=== PATIENT | male | born 1960 | race Caucasian/White ===

== ENCOUNTER 2022-09-02 11:28 | Outpatient (REF) | payer OTHER, SELFPAY ==
[2022-09-02 13:02] LABS: MANUAL DIFF FLAG NO
[2022-09-02 13:14] LABS: Basophils Percent Auto 0.5 % (0-2); Eosinophils Absolute Auto 0.2 X10*3/uL (0.0-0.4); Eosinophils Percent Auto 3.6 % (0-4); Hematocrit 44.2 % (42.0-52.0); Imm Gran Abs Auto 0.03 X10*3/uL (0.00-0.03); Imm Gran Pct Auto 0.5 % (0.0-0.4); Lymphocytes Absolute Auto 2.2 X10*3/uL (1.2-4.9); Lymphocytes Percent Auto 35.6 % (20-40); Mean Corpuscular HGB Conc 33.9 g/dl (31.0-36.0); Mean Corpuscular Hemoglobin 33.1 pg (27.0-33.0); Mean Corpuscular Volume 97.6 fL (80.0-98.0); Mean Platelet Volume 9.5 fL (9.4-12.4); Monocytes Absolute Auto 0.8 X10*3/uL (0.1-1.2); Monocytes Percent Auto 13.7 % (2-11); Neutrophils Absolute Auto 2.8 x10*3/uL (2.0-8.3); Neutrophils Percent Auto 46.1 % (45-73); Platelet Count 279 X10*3/uL (160-400); Red Blood Count 4.53 X10*6/uL (4.60-5.80); Red Cell Distribution Width 13.5 % (11.0-16.0); White Blood Count 6.1 X10*3/uL (4.8-10.8)
[2022-09-02 13:43] LABS: Alanine Aminotransferase 20 U/L (0-40); Alkaline Phosphatase 71 U/L (39-117); Anion Gap 12 (12-20); Aspartate Amino Transferase 14 U/L (5-37); Bilirubin Total 0.4 mg/dL (0.0-1.0); Blood Urea Nitrogen 21 mg/dL (9-16); C Reactive Protein < 0.10 mg/dL (< or = 0.50); Calcium 9.8 mg/dL (8.4-10.2); Carbon Dioxide 28 mmol/L (22-29); Chloride 106 mmol/L (96-108); Estimated Glomerular Filt Rate > 60; Glucose Random 90 mg/dL (60-115); Potassium 4.9 mmol/L (3.3-5.1); Sodium 141 mmol/L (135-145); Total Protein 6.7 g/dL (6.5-8.0)
[2022-09-02 13:52] LABS: Erythrocyte Sedimentation Rate 5 MM/HR (0-15)
[2022-09-04 06:34] LABS: HBc Num1 0.03 S/CO (0.00-0.79); HBsAGNum1 0.28 S/CO (0.00-0.99); Hepatitis A Antibody IgM 0.13 Index (0-0.79); Hepatitis B Core Antibody Nonreactive (Nonreactive); Hepatitis B Surface Antigen Negative (Negative); ~HepC Num1 0.05 S/CO (0.00-0.79); ~Hepatitis A Antibody IgM Nonreactive (Nonreactive); ~Hepatitis B Surface Antibody NONREACTIVE (Nonreactive); ~Hepatitis C Antibody Nonreactive (Nonreactive)
[2022-09-04 14:17] LABS: IgA 442 mg/dL (70-320); IgG 873 mg/dL (600-1540); IgM 143 mg/dL (50-300)
[2022-09-04 22:38] LABS: Prot Elec - Albumin 4.3 g/dL (3.8-4.8); Prot Elec - Alpha1 0.2 g/dL (0.2-0.3); Prot Elec - Alpha2 0.7 g/dL (0.5-0.9); Prot Elec - Beta 1 0.5 g/dL (0.4-0.6); Prot Elec - Beta 2 0.5 g/dL (0.2-0.5); Prot Elec - Gamma 0.8 g/dL (0.8-1.7); Prot Elec - Total Protein 6.9 g/dL (6.1-8.1)
[2022-09-05 03:39] LABS: TS Negative Control Passed; TS Panel A 0; TS Panel B 0; TS Positive Control Passed; TSpotTB Negative (Negative)
== END 2022-09-02 11:29 | disposition home or self-care (01) ==
LOC: HO.LAB 11:28
PROVIDERS: PCP Nurse Practitioner Family; Visit Provider Student in an Organized Health Care Education/Training Program
DX: Z11.7 Encounter for testing for latent tuberculosis infection (principal); Z11.59 Encounter for screening for other viral diseases; M06.9 Rheumatoid arthritis, unspecified; L40.50 Arthropathic psoriasis, unspecified; N52.9 Male erectile dysfunction, unspecified
CPT/HCPCS: 36415; 80053; 82784; 84165; 85025; 85652; 86140; 86334; 86481; 86704; 86706; 86709; 86803; 87340; 99202

== ENCOUNTER → 2022-11-25 11:05 | Outpatient (BNVA) | payer OTHER, SELFPAY | PROVIDERS: PCP Nurse Practitioner Family; Visit Provider Student in an Organized Health Care Education/Training Program | DX: L40.50 Arthropathic psoriasis, unspecified (principal); N52.9 Male erectile dysfunction, unspecified; Z79.631 Long term (current) use of antimetabolite agent | CPT/HCPCS: 99212 ==

== ENCOUNTER 2023-02-18 15:22 | Outpatient (REF) | payer OTHER, SELFPAY ==
[2023-02-18 15:38] LABS: MANUAL DIFF FLAG NO
[2023-02-18 18:22] LABS: Basophils Percent Auto 0.5 % (0-2); Eosinophils Absolute Auto 0.2 X10*3/uL (0.0-0.4); Eosinophils Percent Auto 2.5 % (0-4); Hematocrit 41.4 % (42.0-52.0); Imm Gran Abs Auto 0.02 X10*3/uL (0.00-0.03); Imm Gran Pct Auto 0.3 % (0.0-0.4); Lymphocytes Absolute Auto 2.1 X10*3/uL (1.2-4.9); Lymphocytes Percent Auto 32.2 % (20-40); Mean Corpuscular HGB Conc 33.8 g/dl (31.0-36.0); Mean Corpuscular Volume 97.6 fL (80.0-98.0); Mean Platelet Volume 10.1 fL (9.4-12.4); Monocytes Absolute Auto 0.6 X10*3/uL (0.1-1.2); Monocytes Percent Auto 9.9 % (2-11); Neutrophils Absolute Auto 3.5 x10*3/uL (2.0-8.3); Neutrophils Percent Auto 54.6 % (45-73); Platelet Count 291 X10*3/uL (160-400); Red Blood Count 4.24 X10*6/uL (4.60-5.80); Red Cell Distribution Width 13.3 % (11.0-16.0); White Blood Count 6.5 X10*3/uL (4.8-10.8)
[2023-02-18 18:53] LABS: Alanine Aminotransferase 16 U/L (0-40); Alkaline Phosphatase 63 U/L (39-117); Anion Gap 9 (12-20); Aspartate Amino Transferase 16 U/L (5-37); Bilirubin Total 0.4 mg/dL (0.0-1.0); Blood Urea Nitrogen 19 mg/dL (9-16); C Reactive Protein < 0.04 mg/dL (< or = 0.50); Calcium 9.5 mg/dL (8.4-10.2); Carbon Dioxide 27 mmol/L (22-29); Chloride 107 mmol/L (96-108); Estimated Glomerular Filt Rate > 60; Glucose Random 80 mg/dL (60-115); Potassium 4.4 mmol/L (3.3-5.1); Sodium 139 mmol/L (135-145); Total Protein 6.8 g/dL (6.5-8.0)
[2023-02-18 18:55] LABS: Erythrocyte Sedimentation Rate 7 MM/HR (0-15)
== END 2023-02-18 15:23 | disposition home or self-care (01) ==
LOC: HO.LAB 15:22
PROVIDERS: Visit Provider Student in an Organized Health Care Education/Training Program
DX: L40.50 Arthropathic psoriasis, unspecified (principal)
CPT/HCPCS: 36415; 80053; 85025; 85652; 86140

== ENCOUNTER 2023-05-19 08:43 | Outpatient (AMB) | payer OTHER, SELFPAY ==
[2023-05-19 08:58] VITALS: BP 106/60; PULSE 82; TEMP 36.4; O2SAT 96; BMI 23.2
--- NOTE | 2023-05-19 08:58 | MHC.OFFVIS ---
Intake Vital Signs 05/19/23 08:58 Height 5 ft 5.5 in Weight 141 lb 12.116 oz BMI 23.2 BP 106/60 Blood Pressure Location Rt brachial Position Sitting Pulse 82 Pulse Source Pulse Oximeter Temp 97.5 F Temp Source Skin Pulse Oximetry (%) 96 Intake Visit Reasons: PsA Intake Note: Pt seen today for follow up and discuss medication. States his arthritis is under control Show Host Or Hostess Required: No Accompanied by: Self / Same As Patient Allergies methotrexate Adverse Reaction (Intermediate, Unverified 05/19/23 09:25) erectile dysfunction Medication List - Last Reconciled 05/19/23 by Magan Mackey MD etodolac 400 mg PO .qd metronidazole 0.75% 1 appl topical DAILY PRN omeprazole 20 mg PO .qod HPI HPI Comments History of Present Illness Details 63-year-old male with psoriatic arthritis returns for follow-up. After last visit patient stop the etodolac and felt no improvement with regards to his erectile dysfunction. 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 He stopped methotrexate about a month ago without any change in his arthritic symptoms. He feels however that his erectile dysfunction improved by about 50%. Gets very rare psoriasis rashes Initial history: This is a 62-year-old male with past medical history of psoriasis diagnosed more than 20 years ago, psoriatic arthritis-seronegative arthritis who presents as a new patient. Patient used to see Dr. Lopez followed by Dr. Dudley. States that in 2019 he started having significant joint pain swelling and stiffness. He was evaluated by Dr. Lopez he was started on etodolac then hydroxychloroquine was added. States that the etodolac was helping. Methotrexate was added around 2019. Patient used to take methotrexate and hydroxychloroquine until about 6 months ago. He ran out of the hydroxychloroquine and did not notice much difference in his symptoms. Patient currently feels well overall. Continues to have generalized morning stiffness affecting his back, hands, feet, heels lasting 5-10 minutes improved with walking & the taking the etodolac which he currently uses about once daily. He does not have any back pain that wakes him up from sleep. His granddaughter has Crohn's disease. No history suggestive of uveitis or IBD. Mentions starting a new relationship. He states he is having some difficulty obtaining erections. Over the last few years patient was not interested in any sexual relationships. [facility] Medical History (Updated 05/19/23 @ 09:29 by Magan Mackey MD) Psoriasis Blepharitis Genital herpes simplex Surgical History History of repair of ACL Family History Mother Hypertension Psoriasis Father Arthritis Daughter No problems noted. 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 Review of Systems ENT Details: reduced hearing Reports erectile dysfunction Musc Reports arthralgias Physical Exam Vital Signs: Last Vital Signs Temp 97.5 F 05/19/23 08:58 Pulse 82 05/19/23 08:58 BP 106/60 05/19/23 08:58 Pulse Ox 96 05/19/23 08:58 BMI result Body Mass Index 23.2 Const General: cooperative, healthy appearing, comfortable and no acute distress Nutritional Appearance: average body habitus Orientation/consciousness: patient oriented x3 Limitations: no limitations HEENT Head: Yes normocephalic and Yes atraumatic Resp Effort & Inspection: normal respiratory effort and able to speak in complete sentences Auscultation: clear to auscultation bilaterally Cardio Rate: regular rate Rhythm: regular rhythm Heart sounds: S1 normal heart sound present and S2 normal heart sound present Skin General skin exam: no rashes or lesions noted Neuro General: patient oriented x3 Extrem Other: Mild osteoarthritic changes of both hands with no synovitis Mild right 1st CMC joint tenderness Hugh test 10-14 cm Normal lateral flexion test Negative Veto's test bilaterally Assessment & Plan Assessment & Plan (1) Psoriatic arthritis: Comment: Diagnosed 2018. psA vs seroneg RA Etodolac started 2018, reduced to 1 tab daily 2019 HCQ started 2018, DC'd 2020 as patient could not get any refills Methotrexate started in 2019- patient self DC 04/2023 due to erectile dysfunction which improved after DC Code(s): L40.50 - Arthropathic psoriasis, unspecified Plan: 63-year-old male with a past medical history of psoriasis and psoriatic arthritis/seronegative RA presents for follow-up. Patient self discontinued methotrexate about a month ago due to erectile dysfunction which he feels that he had at least 50% improvement after discontinuation. There is no active synovitis today. Will DC methotrexate and folic acid and watch patient off DMARDs. Advised patient to come back to clinic if he develops worsening arthritic symptoms Infectious screening hepatitis panel T [id number] 22 Follow-up in 6 months (2) Erectile dysfunction: Code(s): N52.9 - Male erectile dysfunction, unspecified Qualifiers: Erectile dysfunction type: drug-induced Qualified Code(s): N52.2 - Drug-induced erectile dysfunction Plan: Vascular genic versus psychogenic. Advised patient to follow-up with his PCP (3) Osteoarthritis: Code(s): M19.90 - Unspecified osteoarthritis, unspecified site Qualifiers: Osteoarthritis location: multiple joints Osteoarthritis type: primary Qualified Code(s): M15.9 - Polyosteoarthritis, unspecified Plan: Patient takes etodolac 400 mg daily. When he held it for 3 days he started having recurrent pain. Advised patient that this pain is likely due to osteoarthritis. Discussed long-term side effects of NSAIDs including GI, nephro and cardiac toxicity. Advised patient to use the lowest dose. Can try using Tylenol Arthritis and apply Voltaren gel to affected areas. Advised patient to get Etodolac refills from his PCP Plan I spent 24 minutes reviewing patient's chart, evaluating patient, counseling patient and documenting in the chart Coding Level of Care Code Est Pt Level 4 (64639) Diagnoses Psoriatic arthritis L40.50 Drug-induced erectile dysfunction N52.2 Erectile dysfunction type: drug-induced Primary osteoarthritis involving multiple joints M15.9 Osteoarthritis location: multiple joints Osteoarthritis type: primary
== END 2023-05-19 09:22 | disposition home or self-care (01) ==
PROVIDERS: Visit Provider Student in an Organized Health Care Education/Training Program
DX: L40.50 Arthropathic psoriasis, unspecified (principal); N52.2 Drug-induced erectile dysfunction; M15.9 Polyosteoarthritis, unspecified
CPT/HCPCS: 99214

== ENCOUNTER → 2023-05-19 08:43 | Outpatient (BNVA) | payer OTHER, SELFPAY | PROVIDERS: Visit Provider Student in an Organized Health Care Education/Training Program | DX: L40.50 Arthropathic psoriasis, unspecified (principal); M15.9 Polyosteoarthritis, unspecified; N52.2 Drug-induced erectile dysfunction | CPT/HCPCS: 99212 ==

== ENCOUNTER 2023-11-29 14:56 | Outpatient (REF) | payer OTHER, SELFPAY ==
[2023-11-29 15:15] LABS: MANUAL DIFF FLAG NO
[2023-11-29 15:32] LABS: Basophils Percent Auto 0.5 % (0-2); Eosinophils Absolute Auto 0.2 X10*3/uL (0.0-0.4); Eosinophils Percent Auto 3.7 % (0-4); Hemoglobin 14.4 g/dl (14.0-18.0); Imm Gran Abs Auto 0.03 X10*3/uL (0.00-0.03); Imm Gran Pct Auto 0.5 % (0.0-0.4); Lymphocytes Absolute Auto 2.2 X10*3/uL (1.2-4.9); Lymphocytes Percent Auto 34.8 % (20-40); Mean Corpuscular HGB Conc 33.5 g/dl (31.0-36.0); Mean Corpuscular Hemoglobin 31.3 pg (27.0-33.0); Mean Corpuscular Volume 93.5 fL (80.0-98.0); Mean Platelet Volume 9.5 fL (9.4-12.4); Monocytes Absolute Auto 0.8 X10*3/uL (0.1-1.2); Monocytes Percent Auto 13.3 % (2-11); Neutrophils Percent Auto 47.2 % (45-73); Platelet Count 280 X10*3/uL (160-400); Red Cell Distribution Width 13.1 % (11.0-16.0); White Blood Count 6.2 X10*3/uL (4.8-10.8)
[2023-11-29 15:54] LABS: Alanine Aminotransferase 16 U/L (0-40); Albumin Level 3.9 g/dL (3.5-5.0); Alkaline Phosphatase 65 U/L (39-117); Anion Gap 12 (12-20); Aspartate Amino Transferase 18 U/L (5-37); Bilirubin Total 0.3 mg/dL (0.0-1.0); Blood Urea Nitrogen 17 mg/dL (9-16); C Reactive Protein 0.75 mg/dL (< or = 0.50); Calcium 9.3 mg/dL (8.4-10.2); Carbon Dioxide 27 mmol/L (22-29); Chloride 105 mmol/L (96-108); Estimated Glomerular Filt Rate > 60; Glucose Random 96 mg/dL (60-115); Potassium 4.1 mmol/L (3.3-5.1); Sodium 140 mmol/L (135-145); Total Protein 7.1 g/dL (6.5-8.0)
[2023-11-29 16:16] LABS: Erythrocyte Sedimentation Rate 11 MM/HR (0-15)
== END 2023-11-29 14:57 | disposition home or self-care (01) ==
LOC: HO.LAB 14:56
PROVIDERS: Visit Provider Student in an Organized Health Care Education/Training Program
DX: L40.50 Arthropathic psoriasis, unspecified (principal)
CPT/HCPCS: 36415; 80053; 85025; 85652; 86140; 99212

== ENCOUNTER 2023-11-29 15:18 | Outpatient (AMB) | payer OTHER, SELFPAY ==
--- NOTE | 2023-11-29 15:28 | MHC.OFFVIS ---
Vital Signs 11/29/23 15:31 Height 5 ft 5 in Weight 141 lb 8.588 oz BMI 23.6 BP 118/72 Blood Pressure Location Rt brachial Position Sitting Pulse 84 Pulse Source Pulse Oximeter Pulse Oximetry (%) 96 Oxygen Delivery Method Room Air Intake Visit Reasons: RA/PsA Intake Note: Pt last seen 05/19/23 presents today for follow up. 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 Last visit methotrexate and folic acid were discontinued and patient remains on etodolac 400 mg daily. States that he takes it for multiple joint pain including his hands, neck, knees, back. States that misses a dose he gets swelling of his hands. He does feel well currently however. Denies any side effects related to etodolac. Denies any stomach upset. Erectile dysfunction has improved. Takes omeprazole 20 mg every other day. States that he has been having some cough and mild fever recently. Can not tell whether these are symptoms of a mild viral infection versus allergy symptoms Initial history: This is a 62-year-old male with past medical history of psoriasis diagnosed more than 20 years ago, psoriatic arthritis-seronegative arthritis who presents as a new patient. Patient used to see Dr. Lopez followed by Dr. Dudley. States that in 2018 he started having significant joint pain swelling and stiffness. He was evaluated by Dr. Lopez he was started on etodolac then hydroxychloroquine was added. States that the etodolac was helping. Methotrexate was added around 2019. Patient used to take methotrexate and hydroxychloroquine until about 6 months ago. He ran out of the hydroxychloroquine and did not notice much difference in his symptoms. Patient currently feels well overall. Continues to have generalized morning stiffness affecting his back, hands, feet, heels lasting 5-10 minutes improved with walking & the taking the etodolac which he currently uses about once daily. He does not have any back pain that wakes him up from sleep. His granddaughter has Crohn's disease. No history suggestive of uveitis or IBD. Mentions starting a new relationship. He states he is having some difficulty obtaining erections. Over the last few years patient was not interested in any sexual relationships. [facility] Medical History Psoriasis Blepharitis Genital herpes simplex Surgical History History of repair of ACL Family History Mother Hypertension Psoriasis Father Arthritis Daughter No problems noted. 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 Review of Systems ENT Details: reduced hearing Musc Reports arthralgias Physical Exam Vital Signs: Last Vital Signs Pulse 84 11/29/23 15:31 BP 118/72 11/29/23 15:31 Pulse Ox 96 11/29/23 15:31 Oxygen Delivery Method Room Air 11/29/23 15:31 BMI result Body Mass Index 23.6 Const General: cooperative, healthy appearing, comfortable and no acute distress Nutritional Appearance: average body habitus Orientation/consciousness: patient oriented x3 Limitations: no limitations HEENT Head: Yes normocephalic and Yes atraumatic Resp Effort & Inspection: normal respiratory effort and able to speak in complete sentences Auscultation: clear to auscultation bilaterally Cardio Rate: regular rate Rhythm: regular rhythm Heart sounds: S1 normal heart sound present and S2 normal heart sound present Back/Spine/Pelvis Other: Some pain with lateral neck flexion bilaterally Skin General skin exam: no rashes or lesions noted Neuro General: patient oriented x3 Extrem Other: Mild osteoarthritic changes of both hands with no synovitis Mild right 1st CMC joint tenderness Hugh test 10-14 cm Normal lateral flexion test Negative Veto's test bilaterally Assessment & Plan Assessment & Plan (1) Psoriatic arthritis: Comment: Diagnosed 2018. psA vs seroneg RA Etodolac started 2018, reduced to 1 tab daily 2019 HCQ started 2018, DC'd 2020 as patient could not get any refills Methotrexate started in 2019- patient self DC 04/2023 due to erectile dysfunction which improved after DC. Etodolac continued Code(s): L40.50 - Arthropathic psoriasis, unspecified Category: Medical Plan: 63-year-old male with a past medical history of psoriasis and psoriatic arthritis/seronegative RA presents for follow-up. He remains on etodolac 400 mg daily. Methotrexate was discontinued last visit. Patient feels no change. Continues to feel well. States that when he misses the etodolac he gets swelling of his hands. There is no active synovitis today. CRP mildly elevated however patient is recovering from a mild flu-like illness We discussed long-term side effects associated with long-term NSAID use including GI, nephro, cardiotoxicity. Discussed potentially adding another DMARD in an attempt to reduce her lines on NSAIDs. Patient states that he is aware of risks of NSAIDs and states that there are NSAIDs associated with any other meds. Generally speaking, patient does not have many cardiovascular risk factors such as hypertension, dyslipidemia, diabetes, smoking. For now continue with etodolac 400 mg daily Labs before next visit in 6 months (2) Erectile dysfunction: Code(s): N52.9 - Male erectile dysfunction, unspecified Category: Medical Qualifiers: Erectile dysfunction type: drug-induced Qualified Code(s): N52.2 - Drug-induced erectile dysfunction Plan: Improved after methotrexate was discontinued (3) Osteoarthritis: Code(s): M19.90 - Unspecified osteoarthritis, unspecified site Category: Medical Qualifiers: Osteoarthritis location: multiple joints Osteoarthritis type: primary Qualified Code(s): M15.9 - Polyosteoarthritis, unspecified Plan: Patient takes etodolac 400 mg daily. As mentioned above, Discussed long-term side effects of NSAIDs including GI, nephro and cardiac toxicity. Gets refills from PCP Plan I spent 24 minutes reviewing patient's chart, evaluating patient, ordering diagnostic workup, counseling patient and documenting in the chart Orders: Orders Complete Blood Count Auto Diff 6 Months L40.50 - Arthropathic psoriasis, unspecified Comprehensive Met. Panel 6 Months L40.50 - Arthropathic psoriasis, unspecified C Reactive Protein 6 Months L40.50 - Arthropathic psoriasis, unspecified Erythrocyte Sedimentation Rate 6 Months L40.50 - Arthropathic psoriasis, unspecified
[2023-11-29 15:31] VITALS: BP 118/72; PULSE 84; O2SAT 96; BMI 23.6
== END 2023-11-29 16:08 | disposition home or self-care (01) ==
LOC: HO.RHE 15:18
PROVIDERS: Visit Provider Student in an Organized Health Care Education/Training Program
DX: L40.50 Arthropathic psoriasis, unspecified (principal); N52.2 Drug-induced erectile dysfunction; M15.9 Polyosteoarthritis, unspecified
CPT/HCPCS: 99214

== ENCOUNTER 2024-05-30 13:53 | Outpatient (REF) | payer MEDICARE, SELFPAY ==
[2024-05-30 14:13] LABS: MANUAL DIFF FLAG NO
[2024-05-30 14:33] LABS: Basophils Percent Auto 0.7 % (0-2); Eosinophils Absolute Auto 0.1 X10*3/uL (0.0-0.4); Eosinophils Percent Auto 2.2 % (0-4); Hematocrit 41.3 % (42.0-52.0); Imm Gran Abs Auto 0.01 X10*3/uL (0.00-0.03); Imm Gran Pct Auto 0.2 % (0.0-0.4); Lymphocytes Absolute Auto 2.4 X10*3/uL (1.2-4.9); Lymphocytes Percent Auto 39.4 % (20-40); Mean Corpuscular HGB Conc 33.9 g/dl (31.0-36.0); Mean Corpuscular Hemoglobin 31.5 pg (27.0-33.0); Mean Corpuscular Volume 92.8 fL (80.0-98.0); Mean Platelet Volume 9.2 fL (9.4-12.4); Monocytes Absolute Auto 0.7 X10*3/uL (0.1-1.2); Monocytes Percent Auto 10.8 % (2-11); Neutrophils Absolute Auto 2.8 x10*3/uL (2.0-8.3); Neutrophils Percent Auto 46.7 % (45-73); Platelet Count 289 X10*3/uL (160-400); Red Blood Count 4.45 X10*6/uL (4.60-5.80); Red Cell Distribution Width 12.8 % (11.0-16.0)
[2024-05-30 14:56] LABS: Alanine Aminotransferase 20 U/L (0-40); Alkaline Phosphatase 60 U/L (39-117); Anion Gap 10 (12-20); Aspartate Amino Transferase 22 U/L (5-37); Bilirubin Total 0.3 mg/dL (0.0-1.0); Blood Urea Nitrogen 19 mg/dL (9-16); C Reactive Protein < 0.10 mg/dL (< or = 0.50); Calcium 9.8 mg/dL (8.4-10.2); Carbon Dioxide 28 mmol/L (22-29); Chloride 107 mmol/L (96-108); Estimated Glomerular Filt Rate > 60; Glucose Random 92 mg/dL (60-115); Potassium 4.5 mmol/L (3.3-5.1); Sodium 140 mmol/L (135-145); Total Protein 6.8 g/dL (6.5-8.0)
[2024-05-30 15:17] LABS: Erythrocyte Sedimentation Rate 5 MM/HR (0-15)
== END 2024-05-30 13:54 | disposition home or self-care (01) ==
LOC: HO.LAB 13:53
PROVIDERS: PCP Family Medicine; Visit Provider Student in an Organized Health Care Education/Training Program
DX: L40.50 Arthropathic psoriasis, unspecified (principal); Z79.1 Long term (current) use of non-steroidal anti-inflammatories (NSAID); Z79.899 Other long term (current) drug therapy
CPT/HCPCS: 36415; 80053; 85025; 85652; 86140; 99212

== ENCOUNTER 2024-05-30 14:18 | Outpatient (AMB) | payer MEDICARE, SELFPAY ==
--- NOTE | 2024-05-30 14:23 | A.OFFVIS_ITS ---
Vital Signs 05/30/24 14:27 Height 5 ft 5 in Weight 137 lb 5.568 oz BMI 22.9 BP 112/60 Blood Pressure Location Rt brachial Position Sitting Pulse 59 Pulse Oximetry (%) 98 Oxygen Delivery Method Room Air Intake Visit Reasons: PsA Intake Note: Patient presents for PsA. Allergies methotrexate Adverse Reaction (Intermediate, Verified 05/30/24 14:26) erectile dysfunction Medication List - Last Reconciled 05/30/24 by Magan Mackey MD acyclovir 400 mg PO DAILY etodolac 400 mg PO DAILY omeprazole 20 mg PO .qod HPI Comments Details: 64-year-old male with psoriatic arthritis returns for follow-up. Patient remains on etodolac 400 mg daily. Doing very well without any joint pain or swelling. He states that he gets very rare flare-ups causing very short-lived joint pains. Has not had any psoriasis rashes recently. Denies any stomach upset. Initial history: This is a 62-year-old male with past medical history of psoriasis diagnosed more than 20 years ago, psoriatic arthritis-seronegative arthritis who presents as a new patient. Patient used to see Dr. Lopez followed by Dr. Dudley. States that in 2019 he started having significant joint pain swelling and stiffness. He was evaluated by Dr. Lopez he was started on etodolac then hydroxychloroquine was added. States that the etodolac was helping. Methotrexate was added around 2019. Patient used to take methotrexate and hydroxychloroquine until about 6 months ago. He ran out of the hydroxychloroquine and did not notice much difference in his symptoms. Patient currently feels well overall. Continues to have generalized morning stiffness affecting his back, hands, feet, heels lasting 5-10 minutes improved with walking & the taking the etodolac which he currently uses about once daily. He does not have any back pain that wakes him up from sleep. His granddaughter has Crohn's disease. No history suggestive of uveitis or IBD. Mentions starting a new relationship. He states he is having some difficulty obtaining erections. Over the last few years patient was not interested in any sexual relationships. [facility] Medical History Psoriasis Blepharitis Genital herpes simplex Surgical History History of repair of ACL Family History Mother Hypertension Psoriasis Father Arthritis Daughter No problems noted. 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 Review of Systems Musc Denies arthralgias, Denies joint swelling and Denies stiffness Physical Exam Vital Signs: Last Vital Signs Pulse 59 05/30/24 14:27 BP 112/60 05/30/24 14:27 Pulse Ox 98 05/30/24 14:27 Oxygen Delivery Method Room Air 05/30/24 14:27 BMI result Body Mass Index 22.9 Const General: cooperative, healthy appearing, comfortable and no acute distress Nutritional Appearance: average body habitus Orientation/consciousness: patient oriented x3 Limitations: no limitations HEENT Head: Yes normocephalic and Yes atraumatic Resp Effort & Inspection: normal respiratory effort and able to speak in complete sentences Auscultation: clear to auscultation bilaterally Cardio Rate: regular rate Rhythm: regular rhythm Skin General skin exam: no rashes or lesions noted Neuro General: patient oriented x3 Extrem Other: Mild osteoarthritic changes of both hands with no synovitis Hugh test 10-14 cm Normal lateral flexion test Negative Veto's test bilaterally Assessment & Plan Assessment & Plan (1) Psoriatic arthritis: Comment: Diagnosed 2018. psA vs seroneg RA Etodolac started 2018, reduced to 1 tab daily 2019 HCQ started 2018, DC'd 2020 as patient could not get any refills Methotrexate started in 2019- patient self DC 04/2023 due to erectile dysfunction which improved after DC. Etodolac continued Code(s): L40.50 - Arthropathic psoriasis, unspecified Category: Medical Plan: 64-year-old male with a past medical history of psoriasis and psoriatic arthritis/seronegative RA presents for follow-up. He remains on etodolac 400 mg daily. Continues to feel well. Gets very rare flare-ups of joint pain and swelling. Inflammatory markers are normal There is no active synovitis today. We discussed long-term side effects associated with long-term NSAID use including GI, nephro, cardiotoxicity. Discussed potentially adding another DMARD in an attempt to reduce her lines on NSAIDs. Patient states that he is aware of risks of NSAIDs and states that there are side effects associated with any other meds. Generally speaking, patient does not have many cardiovascular risk factors such as hypertension, dyslipidemia, diabetes, smoking. Reduce it would have back to 400 mg every other day Labs before next visit in 6 months (2) NSAID long-term use: Code(s): Z79.1 - custodial (current) use of non-steroidal anti-inflammatories (NSAID) Category: Medical Plan: As mentioned above Plan I spent 24 minutes reviewing patient's chart, evaluating patient, ordering diagnostic workup, counseling patient and documenting in the chart Orders: Orders Comprehensive Met. Panel 6 Months L40.50 - Arthropathic psoriasis, unspecified C Reactive Protein 6 Months L40.50 - Arthropathic psoriasis, unspecified Erythrocyte Sedimentation Rate 6 Months L40.50 - Arthropathic psoriasis, unspecified Complete Blood Count Auto Diff 6 Months L40.50 - Arthropathic psoriasis, unspecified Coding Level of Care Code Est Pt Level 4 (00099) Diagnoses Psoriatic arthritis L40.50 NSAID long-term use Z79.1
[2024-05-30 14:27] VITALS: BP 112/60; PULSE 59; O2SAT 98; BMI 22.9
== END 2024-05-30 15:04 | disposition home or self-care (01) ==
PROVIDERS: Visit Provider Student in an Organized Health Care Education/Training Program
DX: L40.50 Arthropathic psoriasis, unspecified (principal); Z79.1 Long term (current) use of non-steroidal anti-inflammatories (NSAID)
CPT/HCPCS: 99214

== ENCOUNTER 2025-02-28 15:04 | Outpatient (REF) | payer MEDICARE, SELFPAY ==
[2025-02-28 15:38] LABS: MANUAL DIFF FLAG NO
--- OUTSIDE RECORDS SUMMARY | 2025-02-28 15:39 | XMS_ITS | Encounter Summary ---
Author Organization [facility] Address [address] [place] [phone] Phone Care Team Providers Care Billing Checker Name Role Phone Wallace Vega MD Primary Care Provider [phone] Wallace Vega MD Primary Care Provider [phone]- [phone] Encounter Details Date Type Department Care Team (Late st Contact Info) Description 06/01/2019 Procedure Pass [facility] Endoscopy Admitting Dept Virtual Department [address] [place] [address] Social History Tobacco Use Types Packs/Day Years Used Date Smoking Tobacco: Former Cigarettes 2 30 Smokeless Tobacco: Never Comments:quit 2001 Alcohol Use Standard Drinks/Week Comments Not Currently 0 (1 standard drink = 0.6 oz pur e alcohol) Sex and Gender Information Value Date Recorded Sex Assigned at Not on file Legal Sex Male 9:50 PM EDT Gender Identity Not on file Sexual Orientation Not on file documented as of this encounter Plan of Treatment Not on file documented as of this encounter Visit Diagnoses Not on filedocumented in this encounter Care Teams Billing Checker Relationship Specialty Start Date End Date Wallace Vega MD PCP - General 06/01/19 07/20/24 Wallace Vega MD [address] [place] [id number] PCP - General Family Medicine 12/13/24 documented as of this encounter Additional Source Comments The information contained in this document represents components of the legal health record. It is not the complete legal health record.[facility]
--- OUTSIDE RECORDS SUMMARY | 2025-02-28 15:39 | XMS_ITS | Data Portability ---
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 [facility] Interior Design Program Chair Assessment Encounter Date Assessment Date Assessment LastModified by Organization Details LastModified Time 10/23/2022 10/23/2022 RTC 1 yr CEE/photo/OCT [email or web address] Not available 10/23/2022 15:07:07 06/13/2024 06/13/2024 RTC 1 yr CEE/photo/OCT [email or web address] Not available 06/13/2024 11:29:04 Plan of Treatment Reminders Order Date Submit Date Provider Last Modified By Organization Details Last Modified Time Details Appointments Compreh ensive Eye Exam, 20 Min 2024 11:00A M Jewell Rodrigues OD Not available Not available Not available Lab None recorde d. Referral allergi st referra l - 63yo M with chronic environ mental allergi es 2022 023 [email or web address] [facility], [address], [place], [address], 05/26/2023 16:36:35 audiolo gist referra l - 63yo M w/ chronic bilater al hearing loss 2022 023 [email or web address] [facility], [address] [facility], [place], [address], 05/25/2023 12:18:[address] st referra l - 63yo M with recurre nt right thoraci c back pain and right upper chest wall pain. please eval and treat 2022 023 [facility], [address] [facility], [place], [address], 05/25/2023 10:54:06 Procedures None recorde d. Surgeries None recorde d. Imaging None recorde d. Medication Orders None recorde d. Patient TargetsNo targets recorded. Patient Instructions Encounter Date Encounter Id Patient Instructions Last Modified By Organization Details Last Modified Time 05/25/2023 [id number] Due for WRiri soon. Schedule at your convenience [facility] Not available 05/25/2023 10:55:50 09/01/2024 [id number] CCM: The provide r and patient discussed the Chronic Care Management program, including the services provided, and any fees associated with them. He declines CCM services at this time After a discussion of treatment options, which included consideration of best practices and patient preferences, the above treatment plan and objectives were adopted schedule wellness visit [facility] Not available 09/01/2024 10:43:09 Reason for Referral Physical Therapist Referral for Thoracic back pain 63yo M with recurrent right thoracic back pain and right upper chest wall pain. please eval and treat Referring Physician: Jo Telles [facility], Encounter Date: 05/25/2023 Interior Design Program Chair Referral for Severo ateral hearing loss 63yo M w/ chronic bilateral hearing loss Referring Physician: Jo Telles [facility], Encounter Date: 05/25/2023 Printed Circuit Boards Laminator Referral for Envir onmental allergy 63yo M with chronic environmental allergies Referring Physician: Jo Telles [facility], Encounter Date: 05/25/2023 Results Created Date Observation Date Name Description Value Unit Range Abnormal Flag Note LastModifiedBy Organization Detail LastModifiedTime Result Notes None recorded. Problems Name Problem SNOMED Code Status Onset Date Resolution Date Notes Provider Name and Address Organization Details Recorded Time Neck pain 02322948 Completed 06/28/2013 Not Available [facility] 3 02:00:37 Paronych ia of finger 968661221 Completed 06/28/2013 Not Available [facility] 3 02:04:05 Pain of shoulder region 58680428 Completed 06/28/2013 Not Available [facility] 3 02:01:03 Psoriasi s 8729220 Active Jo Telles NP [address] [place] [address], [phone] , [facility] 2 14:13:26 Knee pain Completed 06/28/2013 Not Available [facility] 3 02:00:42 Blephari tis 77392249 Active 2006 Not Available [facility] 0 12:25:21 Contusio n of upper arm 87677946 Completed 200606/28/2013 Not Available [facility] 3 02:04:31 Sprain of costal cartilag e Completed 200606/28/2013 Not Available [facility] 3 02:04:24 Impotenc e of organic origin Active 2007 Not Available [facility] 0 12:25:21 Adenomat ous polyp of colon 201407798 Active 2009 still presnet 2018, repeat 2023 Jo Telles NP [address] [place] [address], [phone] , [facility] 2 14:13:26 Genital herpes simplex 93412321 Active 2016 Jo Telles NP [address] [place] [address], [phone] , [facility] 2 14:13:26 Inflamma tory polyarth ropathy 261539831 Active 2018 plaqueni l Jo Telles NP [address] [place] [address], [phone] , [facility] 2 14:13:26 Problem Notes None recorded. Procedures Surgical History Date Name Laterality Status Provider Name and Address Organization Details Recorded Time 06/13/20 24 Fundus Photography completed Jewell Rodrigues, OD [address] [place], [address], [facility] 06/13/2024 17:24:12 07/15/20 23 Physical Activity Counselling completed Ciarra Downing, PT [address] [place], [address], [facility] 07/15/2023 08:12:07 07/15/20 23 05699: PT Eval Low Complexity completed Ciarra Downing, PT [address] [place] [address], [phone], [facility] 07/15/2023 08:12:07 07/15/20 23 Treatment and Advice completed Ciarra Downing, PT [address] [place] [address], [phone], [facility] 07/17/2023 09:40:14 10/24/19 23 Fundus Photography completed Jewell Rodrigues, OD [address] [place] [address], [phone], [facility] 10/23/2022 15:09:40 10/24/19 23 Refraction completed Jewell Rodrigues, OD [address] [place] [address], [phone], [facility] 10/23/2022 14:55:19 05/20/20 21 Fundus Photography completed Jewell Rodrigues, OD [address] [place] [address], [phone], [facility] 05/20/2021 16:22:46 05/09/20 21 Visual field comprehensive completed Jewell Rodrigues, OD [address] [place], [address], [facility] 05/13/2021 12:22:17 05/09/20 21 Optical Coherence Tomography (Retina) completed Jewell Rodrigues, OD [address] [place], [address], [facility] 05/13/2021 12:23:18 08/12/19 21 prevention-cardio vascular risk reduction counseling cancelled Nathalie Reyes [facility] 08/05/2020 13:37:58 08/12/19 21 prevention-annual alcohol misuse screening cancelled Nathalie Reyes CMA [facility] 08/05/2020 13:37:58 05/20/20 20 Visual field comprehensive completed Jewell Rodrigues, OD [address] [place], [address], [facility] 05/23/2020 13:37:52 05/01/20 20 Refraction completed Elizabeth Muñoz [facility] 05/01/2020 12:01:37 05/01/20 20 Optical Coherence Tomography (Retina) completed Jewell Rodrigues, OD [address] [place], [address], [facility] 05/01/2020 13:01:25 11/09/19 19 32569: Therapeutic Exercise completed Temitope Cornejo, PT [address] [place], [address], [facility] 11/08/2018 10:06:13 11/09/19 19 19599: Manual Therapy completed Temitope Cornejo, PT [address] [place], [address], [facility] 11/08/2018 10:06:18 11/09/19 19 Treatment and Advice completed Temitope Cornejo, PT [address] [place], [address], [facility] 11/08/2018 09:36:14 11/02/19 19 60524: Manual Therapy completed Temitope Cornejo, PT [address] [place], [address], [facility] 11/01/2018 12:10:18 11/02/19 19 Treatment and Advice completed Temitope Cornejo, PT [address] [place], [address], [facility] 11/01/2018 10:58:59 10/28/19 19 Physical Activity Counselling completed Temitope Cornejo, PT [address] [place], [address], [facility] 10/27/2018 16:55:07 10/28/19 19 91330: PT Eval Low Complexity completed Temitope Cornejo, PT [address] [place], [address], [facility] 10/27/2018 16:55:04 10/28/19 19 Treatment and Advice completed Temitope Cornejo, PT [address] [place], [address], [facility] 10/27/2018 10:37:26 03/31/20 17 Medicare Wellness Visit completed Brooke Garza LPN [facility] 03/31/2017 13:46:46 04/03/20 13 Treatment and Advice completed Lisa Hastings Ms, PT [address] [place], [address], [facility] 04/03/2013 18:25:30 03/22/20 13 Treatment and Advice completed Lisa Hastings Ms, PT [address] [place], [address], [facility] 03/22/2013 20:54:19 02/13/20 09 vasectomy/Esrick completed Roberto Montenegro MD [address] [place], [address], [facility] 02/12/2009 16:17:48 Other (specify) completed Not Available [facility] 06/25/2011 06:06:16 Imaging Results None recorded. Procedure Notes None recorded. Medical Equipment None Reported. Allergies No known drug allergies Medications Name Sig Start Date Stop Date Status Note LastModified by Organization Details LastModified Time acyclovir 400 mg tablet TAKE 1 TABLET BY MOUTH EVERY DAY 2024 active Not Available Not Available Not Avai lable methotrex ate sodium 2.5 mg tablet TAKE 7 TABLETS BY MOUTH EVERY WEEK FOR 90 DAYS. 05/25 completed Not taking 05/25/23 [facility] Not Available Not Available Not Available metronida zole 0.75 % topical cream APPLY A THIN LAYER TO THE AFFECTED AREA) BY TOPICAL ROUTE 2 TIMES PER DAY IN THE MORNING AND EVENING 06/20 completed Not Available Not Available Not Available omeprazol e 20 mg capsule,d elayed release TAKE 1 CAPSULE BY MOUTH EVERY OTHER DAY 2024 active Not Available Not Available Not Avai lable folic acid 1 mg tablet TAKE 3 TABLETS BY MOUTH EVERY DAY FOR 90 DAYS 05/25 completed Not taking 05/25/23 [facility] Not Available Not Available Not Available etodolac 400 mg tablet TAKE 1 TABLET BY MOUTH TWICE A DAY 2023 active Not Available Not Available Not Avai lable hydrocodo ne 5 mg-acetam inophen 500 mg tablet Take 1 tablet every 4 hours by oral route. 2008 active Not Available Not Available Not Avai lable hydroxych loroquine 200 mg tablet TAKE 1 TABLET BY MOUTH EVERY DAY 05/25 completed Not taking 06/04/22 needs a new rheumoto logist Not taking 05/25/23 [facility] Not Available Not Available Not Available Valium 10 mg tablet Take 1 tablet (10 mg) by oral route 1 hour prior to procedur e 2008 active Not Available Not Available Not Avai lable fluocinon jake 0.05 % topical cream Apply to the affected area(s) by topical route 1 time per day 2020 active Uses mostly during summer months Not Available Not Available Not Available Bactrim DS 800 mg-160 mg tablet Take 1 tablet every 12 hours by oral route for 10 days. 11/03 completed Not Available Not Available Not Available erythromy willy with ethanol 2 % topical gel APPLY A THIN LAYER TO THE AFFECTED AREA(S) BY TOPICAL ROUTE 2 TIMES PER DAY IN THE MORNING AND EVENING as needed 09/01 completed pt not sure of this medicati on 09/01/24 mp Not Available Not Available Not Available Cialis 20 mg tablet 2007 active Take 1.00 tabs as directed as needed Not Available Not Available Not Available Vitals Date Recorded Body weight Heart rate Oxygen saturation Oxygen saturation in Arterial blood by Pulse oximetry Systolic And Diastolic Provider Name and Address Organization Details Last Updated DateTime 5 27167.9 2 g 92 /min 97 % 97 % 100/64 mm[Hg] Shanta Hoffman CMA [facility] 5 10:08:36 Date Recorded Body height Body mass index (BMI) Body weight Heart rate Systolic And Diastolic Provider Name and Address Organization Details Last Updated DateTime 05/25/2023 166.37 cm 23.7 kg/m2 15729.4 g 64 /min 114/64 mm[Hg] Courtney Frank MA [facility] 3 09:34:54 Social History Question Answer Notes LastModified by Organizat ion Details LastModified Time Tobacco Smoking Status Former Smoker Not Available [facility] 06/25/2011 04:53:49 Do You Have An Advance Directive? No Discussed 02/05/10--noone He Would Commit To At This Time [facility] Information not available 02/05/2010 Do You Wear A Helmet When Biking? Yes [email or web address] Information not available 03/31/2017 What Is Your Level Of Caffeine Consumption? Moderate [email or web address] Information not available 06/25/2011 How Much Tobacco Do You Chew? None [email or web address] Information not available 03/31/2017 What Type Of Diet Are You Following? REGULAR Mediterranian Information not available 06/04/2022 Are There Any Guns Present In Your Home? No Information not available 03/31/2017 Do You Use Insect Repellent Routinely? No Information not available 06/04/2022 Live Alone Or With Others? Alone [email or web address] Information not available 06/25/2011 Patient Has Health Care Proxy Signed And In Chart Yes [email or web address] Information not available 06/14/2019 Marital Status [email or web address] Information not available 06/25/2011 Mosquito Repellent Used Routinely No [email or web address] Information not available 03/31/2017 What Was The Date Of Your Most Recent Tobacco Screening? 09/01/2024 Information not available 09/01/2024 How Many Children Do You Have? 2 Lary 1979, Guille 1985, 4 Grandchildren. [email or web address] Information not available 06/13/2019 Do You Use Your Seat Belt Or Car Seat Routinely? Yes Information not available 06/04/2022 Seat Belts Used Routinely Yes [email or web address] Information not available 03/31/2017 Smoke Alarm In Home Yes [email or web address] Information not available 03/31/2017 Do You Have Smoke And Carbon Monoxide Detectors In Your Home? Yes Information not available 06/04/2022 Are You Passively Exposed To Smoke? No Information not available 06/04/2022 General Stress Level Low [email or web address] Information not available 06/25/2011 Do You Use Sunscreen Routinely? No [email or web address] Information not available 03/31/2017 Sex: Male Functional Status Question Answer Note LastModified by Organizat ion Details LastModified Time What is your level of alcohol consumption? Occasional not currently drinking. Last drank 3 months ago. 02/21/19 [email or web address] Information not available 02/21/2019 Do you or have you ever used smokeless tobacco? 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 Never used electronic cigarettes Information not available 11/04/2020 What is your exercise level? None Information not available 09/01/2024 Mental Status None recorded. Family History Relationship Description Onset Age of this Age Resolved Age Notes LastModified by Organization Details LastModified Time Mother Hypertensive disorder previo usly record ed as Hypert ension [email or web address] [id number] Not available 03/20/2013 03:00:55 Daughter Inflammatory disease of liver from drugs [email or web address] [id number] Not available 03/20/2013 03:00:55 Father Arthritis [email or web address] Not available 12/25/2018 07:09:05 Maternal Aunt Malignant tumor of colon 80 80 [email or web address] Not available 2021 13:58:32 Notes:No breast CA, prostate CA Medical History Condition Response Hearing Loss Y HIV/AIDS SKIN MUSCULOSKELETAL Immunizations Vaccine Type Date Status Note Provider Nam e and Address Organization Details Recorded Time Td(adult) unspecified formulation 5 completed DILIP Castillo, [facility] 05/24/2012 13:36:41 Pneumococcal conjugate PCV 13 0 completed Sera Dudley MD [address] [place] [address], [address], [facility] 06/18/2020 15:50:25 Influenza, split virus, quadrivalent, PF 2 completed Jo Telles NP [address] [place] [address], [address], [facility] 06/04/2022 13:51:24 Tdap 2 completed Jo Telles, IRASEMA [address] [place], [address], [facility] 06/04/2022 13:51:24 COVID-19, mRNA, LNP-S, PF, 30 mcg/0.3 mL dose 1 completed Jo Nickerson HEALTH INSURANCE AGENT null, [facility] 01/07/2021 11:29:07 COVID-19, mRNA, LNP-S, PF, 30 mcg/0.3 mL dose 1 completed Jo Nickerson HEALTH INSURANCE AGENT null, [facility] 01/30/2021 10:33:33 Influenza, split virus, quadrivalent, PF 3 completed Jo Telles NP [address] [place], [address], [facility] 05/25/2023 10:54:06 Past Encounters Encounter ID Performer Location Encounter Start Date Encounter Closed Date Diagnosis/Indication Diagnosis SNOMED-CT Code Diagnosis ICD10 Code Diagnosis Note [id number] MD TOSHA Ramesh, [facility], OFFICE [address] [facility] [place] [address] 10/15/2006 09:01:45 10/15/2006 12:24:05 [id number] Yuliana Packer, [facility], OFFICE [address] [facility] [place] [address] 06/09/2007 15:45:24 06/15/2007 15:37:10 [id number] MD TOSHA Ramesh, [facility], OFFICE [address] [place] [address] 07/05/2007 17:31:33 08/29/2008 02:02:29 [id number] MD TOSHA Ramesh, [facility], OFFICE [address] [facility] [place] [address] 05/25/2008 16:23:27 08/29/2008 02:02:29 [id number] IRASEMA Salter, [facility], OFFICE [address] [facility] [place] [address] 10/24/2008 14:27:00 10/26/2008 15:26:11 [id number] Roberto Montenegro MD , [facility], OFFICE [address] [place] [address] 01/04/2009 15:57:07 01/07/2009 16:51:09 [id number] Roberto Montenegro MD , [facility], OFFICE [address] [place] [address] 02/12/2009 14:47:26 02/15/2009 09:50:23 [id number] Roberto Montenegro MD , [facility], [address] [place] [address] 02/25/2009 14:48:26 03/01/2009 10:33:00 [id number] Geetha Madrid MD , [facility], OFFICE [address] [place] [address] 12/02/2009 08:40:05 12/06/2009 12:46:12 [id number] Geetha Madrid MD , [facility], OFFICE [address] [place] [address] 02/05/2010 09:01:52 02/11/2010 13:20:55 [id number] Geetha Madrid MD , [facility], OFFICE [address] [place] [address] 09/12/2010 13:29:41 09/17/2010 08:39:58 [id number] Geetha Madrid MD , [facility], OFFICE [address] [place] [address] 05/24/2012 13:28:16 05/24/2012 13:52:44 [id number] Geetha Madrid MD , [facility], OFFICE [address] [place] [address] 03/15/2013 13:09:02 03/15/2013 13:56:07 [id number] Lisa Hastings Ms, PT Physical Therapy, [facility] [address] [place] [address] 03/22/2013 16:22:00 03/23/2013 09:49:36 Pain of shoulder region 20823707 Neck pain 45922006 [id number] Lisa Hastings Ms, PT Physical Therapy, [address] [address] 03/27/2013 15:58:08 03/28/2013 07:46:33 Pain of shoulder region 66206181 Neck pain 37818923 [id number] Lisa Hastings Ms, PT Physical Therapy, [address] [address] 04/03/2013 17:27:26 04/04/2013 07:44:34 Pain of shoulder region 48381030 Neck pain 43561981 [id number] Geetha Madrid MD , [facility], OFFICE [address] [place] [address] 03/31/2017 13:45:00 03/31/2017 14:55:54 Psoriasis 9527720 L40.9 Genital he rpes simplex 08655875 A60.9 Chronic neck pain 911789 4749 107 M54.2 Adenomatou s polyp of colon 486875127 D12.6 [id number] Geetha Madrid MD , [facility], OFFICE [address] [place] [address] 10/03/2018 13:30:28 10/03/2018 14:09:51 Paresthesia of lower extremity 872931753 R20.2 Swelling o f bilateral feet 574391915 M79.89 Pain in right hand 65238 36328 84635 M79.641 Pain in right arm 022200 004 M79.601 Neck pain 70457267 M54.2 [id number] Temitope pelaez, PT Physical Therapy, [address] [address] 10/27/2018 10:09:09 10/28/2018 07:44:31 Cervical radiculopathy 76365787 M54.12 bilateral sxs including gross user experience team lead strength loss and swelling in hands, the latter inconsiste nt with the diagnosis (explained this to the patient) [id number] Temitope pelaez, PT Physical Therapy, [address] [address] 11/01/2018 10:54:23 11/01/2018 13:46:14 Cervical radiculopathy 93057667 M54.12 bilateral sxs including gross user experience team lead strength loss and swelling in hands, the latter inconsiste nt with the diagnosis (explained this to the patient) [id number] Temitope pelaez, PT Physical Therapy, [facility] [address] [place] [address] 11/08/2018 09:26:49 11/08/2018 15:37:18 Cervical radiculopathy 16962146 M54.12 bilateral sxs including gross user experience team lead strength loss and swelling in hands, the latter inconsiste nt with the diagnosis (explained this to the patient) [id number] Andry Lopez MD Rheumatol [address] [address] 12/23/2018 08:46:18 12/23/2018 09:46:49 Inflammatory polyarthropathy 533772118 M06.4 Symmetrica l inflammato ry polyarthri tis with onset about 6 mo ago.There has been some spontaneou s improvemen t Only mild (but definite) findings of synovitis today, but still has inflammato ry sxs. Differenti al diagnosis is wide. Known hx of psoriasis, but symmetrica l involvemen t, lack of dactylitis etc makes this less likely. Check labs. Therapeuti delano, will treat with higher dose NSAID for now. Try etodolac 400 bid. In view of gradual spontaneou s improvemen t, will hold off on DMARDs for now. If still active synovitis at next visit, probably add DMARD. Discussed treatment with NSAID medication including Gi and cardiovasc ular issues. If he develops any GI sxs will add concurrent omeprazole to reduce GI risk. Psoriasis 1736422 L40.9 Confined to feet. For now, I think psoriatic arthritis unlikely. [id number] Andry Lopez MD Rheumatol og, [address] [address] 02/21/2019 09:53:50 02/21/2019 14:15:15 Inflammatory polyarthropathy 639417286 M06.4 Symmetrica l inflammato ry polyarthri tis with onset about 8 mo ago. Ongoing mild (but definite) findings of synovitis today, but still has inflammato ry sxs. Differenti al diagnosis is wide. Known hx of psoriasis, but symmetrica l involvemen t, lack of dactylitis etc makes this less likely. Inadequate response to Naproxen BID.Discus sed options. Try Plaquenil 200 bid.Discus sed the use of hydroxychl oroquine (Plaquenil ). Specifical ly discussed potential OIL RIG ROUGHNECK and GI side effects, sun sensitivit y and hyperpigme ntation, and discussed specifical ly potential for retinal toxicity and the need for regular eye exams. Chest wall pain 86846902 6 R07.89 Recent 1 week of R sided chest pain: Not pleuritic. Strongly doubt cardiac. Occurred after kayaking: mostly likely muscular. [id number] Geetha Madrid MD , [facility], OFFICE [address] [place] [address] 03/10/2019 15:30:47 03/10/2019 16:12:08 Genital herpes simplex 87107369 A60.9 Screening for malignant neoplasm of colon 131315755 Z12.11 Referral for a DIRECT booked colonoscop y. This patient is a healthy ASA Class 1 or 2 patient (only mild systemic disease), or a STABLE, well controlled insulin dependent diabetic. They do not have serious cardiac disease ie DE/angiopl asty within 1 year, symptomati c CHF; renal failure with CKD 4 or 5; take Coumadin, Plavix, Aggrenox, etc. ADENOMATOU S POLYP 2009. WAS SUPPSOED TO HAVE 5 YR REPEAT. [id number] Andry Lopez MD Rheumatol [facility], [facility] [address] [place] [address] 04/27/2019 10:35:55 04/28/2019 14:33:20 Inflammatory polyarthropathy 413324890 M06.4 Symmetrica l inflammato ry polyarthri tis with onset about 10 mo ago. Ongoing very findings of synovitis today, and inflammato ry sxs have improved since starting Plaquenil 2 mo ago. Differenti al diagnosis is wide. Known hx of psoriasis, but symmetrica l involvemen t, lack of dactylitis etc makes this less likely. Plaquenil is causing some loose bowel movements (not incapacita ting).Try reducing dose to 200/d, but keep track of degree AM stiffness. Let me know if increasing .Continue naproxen. Discussed GI, CV issues. Update labs. [id number] Geetha Madrid MD , [facility], OFFICE [address] [place] [address] 06/13/2019 13:31:53 06/14/2019 11:23:43 Adult health examination [id number] Z00.00 Discussed healthy diet, regular exercise, stress reduction, and the importance of achieving and maintainin g a healthy weight. Recommende d routine use of seat belts, helmets for high velocity sports, and applicatio n of sunscreen and insect repellent. Recommende d completion of a Health Care Proxy. Discussed risks and benefits of screening for prostate cancer including attributes of MEAGHAN and PSA as well the risks of false positive and negative results of PSA/MEAGHAN. The patient appreciate s the consequenc es of failure to diagnose prostate cancer including and the risk of false positive if screening is elected. Colonoscop y recommende d. Counseling [id number] Z71 .9 Depression screening 171 117875 Z13.89 depression screening tool administer ed, entered into emr, scored and discussed. [id number] Andry Lopez MD [facility], [facility] [address] [place] [address] 08/17/2019 10:13:34 08/18/2019 07:02:07 Inflammatory polyarthropathy [id number] M06.4 Symmetrica l inflammato ry polyarthri tis with onset about 12 mo ago. Inflammato ry sxs have improved since starting Plaquenil 4 mo ago, but did not get worse when he lowered the dose.The etodolac remains quite useful. Immediate flare is sxs if he misses a dose. . Differenti al diagnosis is wide. Known hx of psoriasis, but symmetrica l involvemen t, lack of dactylitis etc makes this less likely. Continue naproxen. Discussed GI, CV issues.Add omeprazole 20 qod. Update labs. [id number] Mar GIVENS, [facility], [address] [place] [address] 03/18/2020 09:37:42 03/20/2020 12:46:07 Backache 435100765 M54.9 - low back pain on left radiating to buttocks for two days- improving slowly, sleeping well so declines muscle relaxant- will continue with heat/ice and stretching , and will call office for PT referral if not improving in a few days [id number] Jewell Rodrigues, OD Eye Care, [facility] [address] [place] [address] 05/01/2020 11:33:15 05/01/2020 13:45:49 Inflammatory polyarthropathy 384047194 M06.4 Long-term drug therapy 032856107 Z79.899 plaquenil 200 mg qd. no macula toxicity OU. Presbyopia 16220609 H52. 4 okay to cont with OTC reading glasses. Corneal scar 22176617 H1 7.812 s/p injury 30 years ago, now with scar and rust OS. pt ed. observe. [id number] Jewell Roth Ravi, OD Eye Care, [facility] [address] [place] [address] 05/20/2020 10:04:51 05/23/2020 15:06:47 Inflammatory polyarthropathy 114376849 M06.4 Long-term drug therapy 905273699 Z79.899 plaquenil 200 mg qd. VF wnl. baseline. [id number] Rosamaria Dudley MD Rheumatol ogy, [address] [address] 06/11/2020 11:35:56 06/11/2020 18:40:19 Inflammatory polyarthropathy 917888849 M06.4 Seronegati ve RA vs psoriatic arthritis. Will start methotrexa te and folic acid as patient is taking NSAIDs on a daily basis.Try to wean NSAIDs after one month.Lee Ann ent to get flu shot and PCV-13.Try to decrease plaquenil after one month as patient is getting skin sensitivit y.Check labs now and in 10 weeks.Side effects of methotrexa te discussed with the patient, including but not limited to: allergic reaction, cytopenias , elevated liver enzymes, gastrointe stinal discomfort , lung disease, malignanci es, oral ulcers, hair loss discussed with the patient. Patient counselled that he will need regular blood testing to monitor for the side effects. Patient verbalized understand ing. [id number] Rosamaria Dudley MD , [facility], [address] [place] [address] 06/18/2020 14:02:40 06/18/2020 21:30:30 Active or passive immunization [id number] Z23 [id number] Rosamaria Dudley MD Rheumatol [facility], [address] [address] 09/05/2020 07:44:05 09/05/2020 11:51:20 Inflammatory polyarthropathy 801213543 M06.4 Seronegati ve RA vs psoriatic arthritis. Continue methotrexa te and folic acid as patient is taking NSAIDs on a daily basis. Check labs, if labs are ok, plan is to increase methotrexa te to 20 mg/week and stop plaquenil as patient is getting photosensi tivity. Will try to wean NSAIDs next visit. Patient got the flu shot and PCV-13. COVID vaccine discussed. Check labs now and before next visit. [id number] Geetha Madrid MD , [facility], OFFICE [address] [place] [address] 11/04/2020 15:44:38 11/04/2020 16:26:57 Perioral dermatitis 376280906 L71.0 recent hx white pustules- perioral. and rash. use the metronidzo le [id number] Rosamaria Dudley MD [facility], [address] [address] 12/05/2020 07:35:58 12/05/2020 15:17:50 Inflammatory polyarthropathy 311647025 M06.4 Seronegati ve RA vs psoriatic arthritis. Patient is taking NSAIDs bid. Increase methotrexa te to 17.5 mg weekly and folic acid to 2 mg daily as patient has macrocytos is. After 5 weeks on the new dose of methotrexa te, try to decrease etodolac to once daily. Continue plaquenil for now, as he has not not stopped it last visit. Patient to follow with alexander keyes.Patien t got the flu shot and PCV-13. Patient did not get the COVID vaccine, he would like to wait a little. Counselled to hold his methotrexa te dose after each dose of the vaccine if he decides to take the vaccine. Check labs for disease activity and medication toxicity (standing orders). Diarrhea 93371694 R19.7 Patient counselled to check with his PCP on this. [id number] Rosamaria Dudley MD Rheumatol [facility], [address] [address] 05/05/2021 15:49:03 05/05/2021 16:27:04 Inflammatory polyarthropathy 935018607 M06.4 Seronegati ve RA vs psoriatic arthritis. Likely psoriatic arthritis as patient has also inflamamto ry back pain. Patient is taking NSAIDs daily. Increase methotrexa te to 20 mg weekly and continue folic acid 2 mg daily. Continue etodolac once daily for 5 days a week and twice a day for 2 days of the week. Continue plaquenil for now, consider d/c ing next visit. Biological s discussed but patient is not interested at the time being as he thinks that hi ssymptoms are not debilitati ng.Patient to follow with ophthalmame keyes .Patient got the flu shot and PCV-13. COVID booster discussed (end of July). Counselled to hold his methotrexa te dose for one week after the booster. Check labs for disease activity and medication toxicity (standing orders). Long-term drug therapy 785038833 Z79.899 On plaquenil and methotrexa te.On Edotolac.C ontinue to follow with ophthalmame keyes. Monitor labs (standing orders).Jimbo hill to hold methotrexa te if fever or signs of infection. [id number] Jewell Rodrigues, OD Eye Care, [address] [address] 05/09/2021 08:01:57 05/14/2021 09:34:45 Inflammatory polyarthropathy 043601886 M06.4 Long-term drug therapy 663462460 Z79.899 plaquenil 200 mg qd. VF and OCT wnl stable. no signs of plaquenil toxicity. will review at [facility]. [id number] Jewell Rodrigues, OD Eye Care, [address] [address] 05/20/2021 15:15:38 05/20/2021 16:03:27 Inflammatory polyarthropathy 518920806 M06.4 Long-term drug therapy 805806641 Z79.899 plaquenil 200 mg qd. no macula toxicity OU. Presbyopia 44724967 H52. 4 okay to cont with OTC reading glasses. Corneal scar 15246294 H1 7.812 s/p injury 30 years ago, now with scar and rust OS. pt ed. observe. Cortical s enile cataract 19319238 H25.012 minimal OS only. not visually significan t. observe. [id number] JIMBO Pa , [facility], [address] [place] [address] 11/17/2021 13:25:22 11/27/2021 11:43:12 Dizziness 788387666 R42 x several months, recently worseninge xam reassuring EKG showing inverted AVL lead otherwise sinus rhythm; discussed with Dr. Madrid, rec exercise stress test for further evalcheck labs in the interimcal l with any new/worsen ing symptoms Vitamin D deficiency 347 89886 E55.9 will also check VitD given supplement use Electrocar diogram abnormal 086214176 R94.31 as above [id number] Edmar Murray MD , [facility], [address] [place] [address] 06/04/2022 13:25:06 06/04/2022 16:42:47 Adult health examination 653097330 Z00.00 - HCP: in chart- Albia 2019, repeat 2023- BP wnl today- covid vaccines x2. declines booster. recommende d- FLu and tetanus vaccines today- Hep C screening negative 2019- PSA discussed, deferred Counseling 274542140 Z71 .9 including cardivascu lar risk reduction counseling Depression screening 171 489936 Z13.31 depression screening tool administer ed, entered into emr, scored and discussed, time greater than 7.5 minutes. negative Screening for alcohol abuse 213360820 Z13.39 negative. No alcohol due to current medication s Active or passive immunization 068740773 Z23 TD: todayFlu: todayCovid booster: declines . encouraged Shingles: Reminded to get at pharmacy Inflammato ry polyarthropathy 401832078 M06.4 Had been managed by rheum here. Needs a new referral now. Contact info given and referral sent Psoriasis 5420328 L40.9 milld. no current rash Screening for disorder 366023834 Z13.9 discussed, will schedule screening labs Genital he rpes simplex 33687692 A60.9 no recent outbreaks with daily acyclovir Hearing loss 51981785 H9 1.93 bilateral. pt not interested in hearing aids at this time. regular ear protection from loud noises [id number] Jewell Rodrigues, OD Eye Care, [facility] [address] [place] [address] 10/23/2022 13:49:55 10/23/2022 15:06:58 Inflammatory polyarthropathy 785966395 M06.4 Long-term drug therapy 467523161 Z79.899 h/o plaquenil 200 mg qd from february 2019 until May 2022. no macula toxicity OU. NOT taking any more. Presbyopia 57622615 H52. 4 okay to cont with OTC reading glasses. Corneal scar 76684818 H1 7.812 s/p injury 30 years ago, now with scar and rust OS. pt ed. observe. Macular drusen 685197969 H35.363 some pinpoint drusen OU. former smoker, 30 pack years, quit 20 years ago. we discussed eating different colored fruits and vegetables . monitor annually. Cortical s enile cataract 37460411 H25.012 mild OS only. not visually significan t. observe. [id number] Edmar Murray MD , [facility], [address] [place] [address] 05/25/2023 09:23:48 05/28/2023 10:59:20 Active or passive immunization 455175590 Z23 Shingles: Reminded pt to get at pharmFlu: Will do today Thoracic back pain 74560 8004 M54.6 right thoracic back and right upper chest wall tenderness with muscle rigidity and internal rotation of right shoulder. No injury. Currently on Etodolac with Rheum. Will refer to PT Chest wall pain 69839007 6 R07.89 see above Bilateral hearing loss 12974287 H91.93 chronic. pt interested in hearing aids. referred to Audiology . COntact info given Environmental allergy 42 0920269 T78.49XA chronic with right ear pressure. improved with claritin in the past. 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 Will refer. Contact info given Inflammato ry polyarthropathy 767471212 M06.4 Now seeing Rheum at [facility]. Managed with Etodolac. Will follow up as planned [id number] Ciarra Downing, PT Physical Therapy, [address] [address] 07/15/2023 12:16:24 07/19/2023 08:54:23 Thoracic back pain 456841985 M54.6 Patient is a 63-year old male who presents to physical therapy with complaint of episodic right-side d pectoral/a nterior chest wall pain which is not changing. Physical examinatio n was unable to reproduce patient's symptoms aside from mild TTP of the right pec minor. Patient is asymptomat ic and without functional limitation s at this time; he does not currently require skilled physical therapy. He will return to care should his symptom recur. [id number] Jewell Rodrigues, OD Eye Care, [address] [address] 06/13/2024 10:47:09 06/14/2024 11:14:23 Presbyopia 26808555 H52.4 okay to cont with OTC reading glasses. Corneal scar 78912677 H1 7.812 s/p injury over 30 years ago, now with scar and rust OS. pt ed. observe. Macular drusen 253333038 H35.363 some pinpoint drusen OU. former smoker, 30 pack years, quit 20+ years ago. stable. no tx indicated. monitor annually Cortical s enile cataract 48952968 H25.013 mild OS>OD, mild, not visually significan t. pt ed. recommend observatio n [id number] Jo Telles NP FP, [facility], OFFICE [address] [place] [address] 09/01/2024 09:53:44 09/01/2024 12:45:47 Active or passive immunization 804619388 Z23 Pneumo: aware to get at pharmacySh ingles: Reminded pt to get at pharmdiscu ssed, recommende d Genital he rpes simplex 34964424 A60.9 no recent outbreaks with daily acyclovir, tolerating well. will continue Inflammato ry polyarthropathy 120141090 M06.[address] [facility] though his provider is leaving and he is unsure if they will have someone else for him to see. He will call if he needs a new referral. Managed with Etodolac. Omeprazole every other day for GI protection Screening for disorder 707978906 Z13.6 F17.210 Former SMOKERMALE AGE 65-75 ON MEDICAREON CE/LIFETIM E EXAM>100 CIGARETTES IN LIFETIME AAA screening recommende d We discussed this screening opportunit y at our visit today. You have declined screening at this time. You are aware of the risks of a missed diagnosis or as a result of this decision. Health Concerns Section Related Observation LastModified by Organization Detai ls LastModified Time None Recorded Concern Status LastModified by Organization Details LastModified Time None Recorded Advance Directives Directive N: discussed 02/05/10--noone he would commit to at this time Payers Insurance Date Sequence Insurance Name Policy Number Policy العراقي Covered Member ID [id number] Member ID Guarantor Name 08/28/2024 1 [place]: [facility] Taiwo Lynn [id number] Taiwo Lynn 09/19/2018 1 *SELF PAY* Albert Lynn 06/13/2024 1 [facility] - PLAN TYPE 3 (MEDICAID HMO) Taiwo Lynn [id number] Taiwo Lynn 06/13/2024 1 [facility] (O) Taiwo Lynn [id number] Taiwo Lynn 10/24/2008 1 *SELF PAY* Albert Lynn 06/13/2024 1 [facility] [place] BLUE [id number] Taiwo Lynn [id number] Taiwo Lynn 05/19/2012 1 *SELF PAY* Albert Lynn 06/13/2024 1 [facility] - PLAN TYPE 3 (MEDICAID HMO) [id number] Taiwo Lynn [id number] Taiwo Lynn 06/13/2024 1 [facility] NET PLAN (MEDICAID HMO) Taiwo Lynn [id number] Taiwo Lynn 06/13/2024 1 [facility] (HMO) [id number] Taiwo Lynn [id number] Taiwo Lynn Notes Date Note Type Note Provider Name and Address Organization Details Recorded Time 3 text/html CataractReported by PatientHPIFor location, patient reportsleft. For quality, patient reportspainless. For severity, patient reportsmild. For onset/timing, patient reportsgradual. Jewell Rodrigues, OD [address] [place], [address], [facility] 10/23/2022 15:10:16 3 text/html ROS as noted in the HPI 63y male presents for R side chest pain-started a year or so ago though does not remember exactly- hurt when he bent over to pick something up a few weeks ago. took a few days to resolve- occurs on and off- always triggered by a movement- tender to palpation chest and upper back, on the right- can't say how often this occurs- otherwise feels fine. no associated symptoms- Normal stress test 12/2021 - [facility] Rheum for inflammatory arthritis- etodolac and omeprazole- no more methotrexate or hydroxychloroquine - chronic bilateral hearing loss. interested in seeing audiology. interested in hearing aids- chronic right ear congestion. denies sinus congestion. better with claritin in the past but did not want to continue Jo Telles, IRASEMA [address] [place] [address], [phone], [facility] 05/25/2023 10:56:12 3 text/html PT/OT Initial EvalReported by PatientHPIFor symptom intensity, patient reportsaverage intensity 0/10andworst 02/15. For symptoms prevent patient from participating in, patient reportswork. For have the patient seen any other practitioners about their symptoms, patient reportsprimary care,orthopedist,physic al therapist,massage therapist, andchiropractor. For prior studies, patient reportsnone. For does the patient have any of these medical conditions?, patient reportscancer. For activities/hobbies/exer cise, patient reportswhat are the patient's interests/hobbies?. For history, (patient referred to pt for assessment of thoracic pain, reports that he has been experiencing episodic brief (1-2 minutes) sharp intense pain in his r pectoral region [pt indicates r upper pec mid-clavicular line]. no known injury. symptoms are unpredictable frequency, can happen at rest or when pt performing his usual adls/iadls. there's no rhyme or reason to it. i'm usually not doing anything when it happens. states that he hasn't had symptoms in approx 1 week.he reports an episode of significant light-headedness approx 1 [address] driving, vision blurry, had to bone puller. symptoms resolved spontaneously after pt rested for a few minutes.).Functional ScoresFor functional scores, patient reportsother functional measures back disability index ( = 18% limitation). Intake ReviewedReported by Patientencounter background informationFor patient intake form reviewed, patient reportswith patient including functional limitations. document is scanned into chart. Ciarra Downing, PT [address] [place], [address], [facility] 07/17/2023 09:40:31 4 text/html CataractReported by PatientHPIFor location, patient reportsleft. For quality, patient reportspainless. For severity, patient reportsmild. For onset/timing, patient reportschronic. Watery OU in the morning. Has a fuzzy spot in OS x 1 year. Intermittent floaters, nothing new. Gets a visual disturbance in the periphery of OU. Like heat rising off the pavement. Can last seconds to 1 minute. Does not result in migraine. no associated numbeness, tingling, slurred speech, weakness. Has been happening on and off x years. Has d/c plaquenil x 1 year. Jewell Rodrigues, OD [address] [place], [address], [facility] 06/13/2024 17:25:37 5 text/html ROS as noted in the HPI 64yo M presents for follow up/meds inflammatory arthritis- prescribed etodolac- omeprazole for GI protectionSees Rheum [facility]. has last rheum was moving. unsure if they have someone else for him to see HSV- acyclovir for prevention- last outbreak was 12-14 years ago colo 07/2024 w/ 7-8 year repeat AAA declines screening Jo Telles NP [address] [place] [address], [place], [address], [facility] 09/01/2024 10:43:21
[2025-02-28 15:47] LABS: Hematocrit 40.6 % (42.0-52.0); Hemoglobin 13.9 g/dl (14.0-18.0); Imm Gran Abs Auto 0.02 X10*3/uL (0.00-0.03); Imm Gran Pct Auto 0.3 % (0.0-0.4); Lymphocytes Absolute Auto 2.5 X10*3/uL (1.2-4.9); Mean Corpuscular HGB Conc 34.2 g/dl (31.0-36.0); Mean Corpuscular Hemoglobin 31.3 pg (27.0-33.0); Mean Corpuscular Volume 91.4 fL (80.0-98.0); NRBC Abs Auto 0.000 X10*3/uL (0.0-0.012); NRBC Pct Auto 0.0 /100WBC (0.0-0.2); Platelet Count 281 X10*3/uL (160-400); Red Blood Count 4.44 X10*6/uL (4.60-5.80); White Blood Count 6.2 X10*3/uL (4.8-10.8)
[2025-02-28 16:08] LABS: Alanine Aminotransferase 24 U/L (0-40); Albumin Level 4.1 g/dL (3.5-5.0); Alkaline Phosphatase 63 U/L (39-117); Anion Gap 9 (12-20); Aspartate Amino Transferase 22 U/L (5-37); Blood Urea Nitrogen 17 mg/dL (9-16); Calcium 9.2 mg/dL (8.4-10.2); Carbon Dioxide 29 mmol/L (22-29); Chloride 106 mmol/L (96-108); Estimated Glomerular Filt Rate > 60; Potassium 4.7 mmol/L (3.3-5.1); Sodium 139 mmol/L (135-145); Total Protein 6.8 g/dL (6.5-8.0)
== END 2025-02-28 15:05 | disposition home or self-care (01) ==
LOC: HO.LAB 15:04
PROVIDERS: PCP Family Medicine; Referring Provider Student in an Organized Health Care Education/Training Program; Visit Provider Student in an Organized Health Care Education/Training Program
DX: L40.50 Arthropathic psoriasis, unspecified (principal)
CPT/HCPCS: 36415; 80053; 85025; 85652; 86140

== ENCOUNTER 2025-03-07 12:23 | Outpatient (AMB) | payer MEDICARE, SELFPAY ==
--- NOTE | 2025-03-07 12:33 | A.OFFVIS_ITS ---
Vital Signs 03/07/25 12:40 Height 5 ft 5 in Weight 138 lb 7.205 oz BMI 23.0 BP 100/62 Blood Pressure Location Lt brachial Position Sitting Pulse 54 Pulse Source Pulse Oximeter Pulse Oximetry (%) 98 Oxygen Delivery Method Room Air Intake Visit Reasons: PsA Intake Note: Patient presents for PsA follow up. Allergies methotrexate Adverse Reaction (Intermediate, Verified 03/07/25 12:38) erectile dysfunction Medication List - Last Reconciled 03/07/25 by Madie Sevilla MD acyclovir 400 mg PO DAILY etodolac 400 mg PO DAILY omeprazole 20 mg PO .qod HPI Comments Details: Patient is a 64-year-old male with GERD, polyarticular osteoarthritis and psoriatic arthritis here today for follow up Interval History: Patient last seen 05/30/[address] Mackey - Doing well - On Etodolac 400mg - Intermittent flares but rarely Today - continues to use daily NSAIDs - Denies abdominal pain, GERD or any other side effects, good response from the joints Rheumatologic History: Diagnosed 2018. psA vs seroneg RA Etodolac started 2018, reduced to 1 tab daily 2019 HCQ started 2018, DC'd 2020 as patient could not get any refills Methotrexate started in 2019- patient self DC 04/2023 due to erectile dysfunction which improved after DC. Etodolac continued Initial history: This is a 62-year-old male with past medical history of psoriasis diagnosed more than 20 years ago, psoriatic arthritis-seronegative arthritis who presents as a new patient. Patient used to see Dr. Lopez followed by Dr. Dudley. States that in 2018 he started having significant joint pain swelling and stiffness. He was evaluated by Dr. Lopez he was started on etodolac then hydroxychloroquine was added. States that the etodolac was hel ping. Methotrexate was added around 2019. Patient used to take methotrexate and hydroxychloroquine until about 6 months ago. He ran out of the hydroxychloroquine and did not notice much difference in his symptoms. Patient currently feels well overall. Continues to have generalized morning stiffness affecting his back, hands, feet, heels lasting 5-10 minutes improved with walking & the taking the etodolac which he currently uses about once daily. He does not have any back pain that wakes him up from sleep. His granddaughter has Crohn's disease. No history suggestive of uveitis or IBD. Mentions starting a new relationship. He states he is having some difficulty obtaining erections. Over the last few years patient was not interested in any sexual relationships. Current Rheumatology Medication(s): Etodolac 400mg daily [facility] Medical History Psoriasis Blepharitis Genital herpes simplex Surgical History History of repair of ACL Family History Mother Hypertension Psoriasis Father Arthritis Daughter No problems noted. 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 Review of Systems Const Details: Review of Systems Constitutional: Denies fever, chills, weight loss ENT: Denies vision changes, eye pain or eye redness, dental caries, dry mouth GI: Denies nausea, vomiting, diarrhea, abdominal pain, change in BM Pulm: Denies SOB, MUSE, hemoptysis, wheezing Cards: Denies chest pain, palpitations Skin: Denies Raynaud's, rash, nail changes, photosensitivity, MANAGER [employer]AGE: Denies headaches, weakness, paresthesias, recurrent falls MSK: as per HPI All other systems reviewed and are unremarkable except noted above Physical Exam Exam Exam: Vital signs reviewed Physical Examination CONSTITUITIONAL Patient alert and cooperative. Well appearing and in no apparent painful distress MSK Hands * Right Hand: Able to make a fist. No swelling or tenderness to palpation of these joints. Nail changes to the 3rd digit * Left Hand: Able to make a fist. No swelling or tenderness to palpation of these joints. Wrists * Right Wrist: Full ROM. 70 degrees of wrist flexion, 80 degrees of wrist extension. No swelling or TTP * Left Wrist: Full ROM. 70 degrees of wrist flexion, 80 degrees of wrist extension. No swelling or TTP Elbows * Right Elbow: Full ROM. No swelling or TTP. No TTP of the medial and lateral epicondyles * Left Elbow: Full ROM. No swelling or TTP. No TTP of the medial and lateral epicondyles Shoulders * Right shoulder: Full ROM. No swelling noted. No TTP of the AC joint, subacromial bursa or posterior shoulder * Left shoulder: Full ROM. No swelling noted. No TTP of the AC joint, subacromial bursa or posterior shoulder Knees * Right knee: Full ROM. No swelling noted. No TTP of the knee joint lie or pes anserine bursa * Left knee: Full ROM. No swelling noted. No TTP of the knee joint lie or pes anserine bursa. Ankles * Right ankle: Good ankle dorsiflexion and plantar flexion. No swelling. No TTP of the ankle joint * Left ankle: Good ankle dorsiflexion and plantar flexion. No swelling. No TTP of the ankle joint Feet * Right foot: Negative squeeze test * Left foot: Negative squeeze test Tender points? * No tenderness to palpation of the bilateral trapezius, supraspinatus, anterior costochondral junctions, bilateral suboccipital muscle insertions SKIN No rashes Vital Signs: Last Vital Signs Pulse 54 03/07/25 12:40 BP 100/62 03/07/25 12:40 Pulse Ox 98 03/07/25 12:40 Oxygen Delivery Method Room Air 03/07/25 12:40 BMI result Body Mass Index 23.0 Results Reviewed Results Reviewed: Laboratory Tests 02/28/25 15:36 WBC 6.2 RBC 4.44 L Hgb 13.9 L Hct 40.6 L Plt Count 281 ESR 6 Sodium 139 Potassium 4.7 Chloride 106 Carbon Dioxide 29 BUN 17 H Creatinine 1.00 AST 22 ALT 24 Alkaline Phosphatase 63 C-Reactive Protein < 0.04 Assessment & Plan Assessment & Plan (1) Psoriatic arthritis: Comment: Diagnosed 2018. psA vs seroneg RA Etodolac started 2018, reduced to 1 tab daily 2019 HCQ started 2018, DC'd 2020 as patient could not get any refills Methotrexate started in 2019- patient self DC 04/2023 due to erectile dysfunction which improved after DC. Etodolac continued Code(s): L40.50 - Arthropathic psoriasis, unspecified Category: Medical Plan: #PsA Patient is a 64-year-old male with psoriatic arthritis here today for follow up. Currently on prolonged NSAID use with etodolac. Had a discussion with the patient that long-term use of NSAIDs is not ideal as it can lead to GI issues including ulcers and perforation as well as kidney and liver issues. He has tried methotrexate and hydroxychloroquine in the past with no improvement in his pain and intolerance of the medications with varying GI side effects. I discussed starting Otezla with the patient. As a means to wean his NSAID use. He is willing to try this medication. Plan - Otezla: Initial: 10 mg in the morning on day 1; Day 2: 10 mg twice daily; Day 3: 10 mg in the morning and 20 mg in the evening; Day 4: 20 mg twice daily; Day 5: 20 mg in the morning and 30 mg in the evening. Maintenance dose: 30 mg twice daily starting on day 6. - Continue Etodolac 400mg daily for now - RTC 4 months - Labs before visit: CBC, CMP, ESR, CRP (2) NSAID long-term use: Code(s): Z79.1 - long term care administrator (current) use of non-steroidal anti-inflammatories (NSAID) Category: Medical Plan: #Long-term Use of NSAIDs Discussed with patient the benefits and risk of NSAIDs for managing the rheumatic condition Benefits include: - Reduced the pain, improved mobility, and increased participation in activities Risks include: - GI upset, potential also worsening or formation (especially in patients > 65 years old) Recommended using proton pump inhibitors (PPIs) for the duration of NSAID use to reduce the risk of gastric ulcers (3) Long-term current use of apremilast: Code(s): Z79.61 - long term care administrator (current) use of immunomodulator Plan: #Long-term Current Use of Apremilast Risks and benefits of Apremilast in the management of psoriatic arthritis and psoriasis discussed with the patient. Benefits include decreased joint pain and morbidity Risks include GI upset including diarrhea, hypersensitivity reactions, significant weight loss, symptoms of depression Plan I spent 30 minutes reviewing the record and labs, taking a history, examining the patient, discussing the treatment plan, ordering diagnostic work up and documenting in the medical record Orders: Orders Complete Blood Count Auto Diff 4 Months L40.50 - Arthropathic psoriasis, unspecified Comprehensive Met. Panel 4 Months L40.50 - Arthropathic psoriasis, unspecified C Reactive Protein 4 Months L40.50 - Arthropathic psoriasis, unspecified Erythrocyte Sedimentation Rate 4 Months L40.50 - Arthropathic psoriasis, unspecified Medications: New apremilast (Otezla Starter) 1 ea PO PER PKG DIR 55 ea 0RF L40.50 - Arthropathic psoriasis, unspecified apremilast (Otezla) To start after the starter pack 30 mg PO BID 60 tabs 5RF L40.50 - Arthropathic psoriasis, unspecified Coding Level of Care Code Est Pt Level 4 (00947) Complex EM visit Add On G2211 Diagnoses Psoriatic arthritis L40.50 NSAID long-term use Z79.1 Long-term current use of apremilast Z79.61
[2025-03-07 12:40] VITALS: BP 100/62; PULSE 54; O2SAT 98; BMI 23.0
--- OUTSIDE RECORDS SUMMARY | 2025-03-07 13:03 | XMS_ITS | Encounter Summary ---
Author Organization [facility] Address [address] [place] [id number] Phone Care Team Providers Care Linen Room Supervisor Name Role Phone Wallace Vega MD Primary Care Provider [phone] Wallace Vega MD Primary Care Provider [phone]- [phone] Encounter Details Date Type Department Care Team (Late st Contact Info) Description 06/01/2019 Procedure Pass [facility] Admitting Dept Virtual Department [address] [place] [address] Social History Tobacco Use Types Packs/Day Years [...] on filedocumented in this encounter Care Teams Linen Room Supervisor Relationship Specialty Start Date End Date Wallace eVga MD PCP - General 06/01/19 07/20/24 Wallace Vega MD [address] [place] [id number] PCP - General Family Medicine 12/13/24 documented as of this encounter Additional Source Comments The information contained in this document represents components of the legal health record. It is not the complete legal health record.[facility]
== END 2025-03-07 13:09 | disposition home or self-care (01) ==
LOC: HO.RHE 12:24
PROVIDERS: PCP Family Medicine; Visit Provider Student in an Organized Health Care Education/Training Program
DX: L40.50 Arthropathic psoriasis, unspecified (principal); Z79.1 Long term (current) use of non-steroidal anti-inflammatories (NSAID); Z79.61 Long term (current) use of immunomodulator
CPT/HCPCS: 99214; G2211

== ENCOUNTER → 2025-03-07 12:23 | Outpatient (BNVA) | payer MEDICARE, SELFPAY | PROVIDERS: PCP Family Medicine; Visit Provider Student in an Organized Health Care Education/Training Program | DX: L40.50 Arthropathic psoriasis, unspecified (principal); Z79.1 Long term (current) use of non-steroidal anti-inflammatories (NSAID); Z79.61 Long term (current) use of immunomodulator | CPT/HCPCS: 99212 ==